=== PATIENT | male | born 1985 | race Hispanic/Latino ===

== ENCOUNTER 2016-12-03 23:00 | Emergency (ER) | payer OTHER ==
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
[2016-12-03] MEDS ORDERED: 0.9% Sodium Chloride 1,000 ML IV ONE (23:03)
[2016-12-03 23:12] LABS: BASOPHILS % (AUTO) 0.5 % (0-3); EOSINOPHILS % (AUTO) 0.5 % (0-5); MONOCYTES % (AUTO) 6.6 % (4-12); Mean Corpuscular Hemoglobin 30.8 pg (27.0-35.0); Mean Corpuscular Volume 84.9 fL (81-100); NEUTROPHILS % (AUTO) 66.6 % (40-74); Platelet Count 328 bil/L (150-400)
[2016-12-03 23:38] LABS: TROPONIN T 0.01 ug/L (0.0-0.011)
[2016-12-03 23:39] LABS: INR 0.95 ratio
[2016-12-03 23:49] LABS: Magnesium 2.2 mg/dL (1.6-2.6)
[2016-12-04] MEDS ORDERED: IBUP-1827 PO (00:27)
[2016-12-04 01:39] VITALS: BP 121/87; PULSE 76; RESP 15; O2SAT 98
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
== END 2016-12-04 01:41 | disposition home or self-care (01) ==
LOC: SED 23:00
DX: S01.01XA Laceration without foreign body of scalp, initial encounter (principal); S06.0X1A Concussion with loss of consciousness of 30 minutes or less, initial encounter; V48.6XXA Car passenger injured in noncollision transport accident in traffic accident, initial encounter; Y93.89 Activity, other specified; Y92.410 Unspecified street and highway as the place of occurrence of the external cause; Y99.8 Other external cause status
CPT/HCPCS: 12002; 36415; 70450; 71010; 72125; 80053; 83690; 83735; 84484; 85025; 85610; 85730; 99285; G0390; G0480; J7030

== ENCOUNTER 2016-12-15 15:16 | Emergency (ER) | payer OTHER ==
[~2016-12-15] VITALS: Ht 165.1 cm; Wt 59.1 kg
[~2016-12-15 15:16] MED LIST: IBUP-1827 PO
[2016-12-15 15:21] VITALS: BP 143/82; PULSE 62; RESP 15; O2SAT 97
== END 2016-12-15 15:41 | disposition home or self-care (01) ==
LOC: SED 15:16
DX: Z48.02 Encounter for removal of sutures (principal)